=== PATIENT | male | born 1965 | race Caucasian/White ===

== ENCOUNTER 2019-06-28 06:08 | Observation (INO) ==
--- NOTE | 2019-06-10 13:07 | PAT Medication Instructions ---
Medication Instructions Date of Service June 10, 2019 Home Medications ibuprofen [Advil] 200 mg PO UD PRN naproxen 500 mg PO UD PRN ASK your surgeon for instructions ibuprofen [Advil] 200 mg PO UD PRN naproxen 500 mg PO UD PRN Other Notes If you have any questions please call us at [phone] or [phone] or [phone] or [phone]
--- NOTE | 2019-06-13 10:30 | Anesthesiology Consultation ---
Date of Service June 13, 2019 Assessment & Plan (1) Encounter for pre-operative examination: Chart Review Chart Review: Acceptable Risk for Surgery and Patient seen in Pre Admission Testing Teaching & Discussion Pre-Anesthesia Teaching/Discussion Notes: Instructed NPO after midnight before surgery,except medications with 15 cc of water. Medication instructions provided according to the PAT guidelines. History Surgery Operation Date: 06/28/19 12:40 Proposed Procedures p Right Total Hip Arthroplasty - Chavez Begum MD Height/Weight Height: 6 ft 5 in Weight: 183.3 kg Allergies Allergy/AdvReac Type Severity Reaction Status Date / Time No Known Allergies Allergy Verified 06/13/19 08:58 Medications Home Medications Medication Instructions Recorded Confirmed Last Taken ibuprofen [Advil] 200 mg PO UD PRN 06/06/19 06/13/19 Unknown naproxen 500 mg PO UD PRN 06/06/19 06/13/19 Unknown 3-in-1 Commode #1 ea 06/13/19 06/13/19 Unknown 3-in-1 Commode #1 ea 06/13/19 06/13/19 Unknown Wheeled Walker #1 ea 06/13/19 06/13/19 Unknown Wheeled Walker #1 ea 06/13/19 06/13/19 Unknown Past Medical History Medical History Acquired lymphedema of lower extremity Degenerative joint disease of right hip Morbid obesity Osteoarthritis Exercise / Class Metabolic Activity II 4-5 Yardwork/Stairs/Walk up hill Past Family History Family History Father Family history of diabetes mellitus Brother Family history of diabetes mellitus Other Family history of colon cancer Past Surgical History Surgical History History of colonoscopy History of trigger finger Hx of LASIK BOTH EYES Past Anesthesia History No Hx of Anesthesia Complications and No Family Hx of Anesthesia Complications History of PONV No Hx of PONV and No Hx of Motion Sickness Social History Smoking Status: Never smoker Do You Dip or Chew Tobacco: No Hx Alcohol Use: Yes Alcohol type: beer alcohol intake frequency: a few times a month Hx Substance Use: No substance use type: does not use Review of Systems Patient denies chest pain, shortness of breath, dyspnea on exertion, cough, wheezing, palpitations. Physical Exam Vital Signs VITALS BP 136/74 P 82 TEMP 98.3 SP02 93%RA RESP 18 PHYSICAL Full neck and c-spine range of motion. Full TMJ range of motion. TMD 4 finger breaths Mallampati Score 2 Dentition: intact Lungs: clear throughout to auscultation Cardiac: regular rate and rhythm, no murmurs noted Spine: normal Carotid arteries: negative bruit Extremities: no edema Thick neck Testing Laboratory Results 06/13/19 10:54 06/13/19 10:54 PT 10.8 Seconds (9.0-12.0) 06/13/19 10:54 INR 1.1 (0.9-1.1) 06/13/19 10:54 APTT 27.6 Seconds (21.0-31.0) 06/13/19 10:54 Blood Type O Positive 06/13/19 10:54 Antibody Screen NEGATIVE 06/13/19 10:54 Electrocardiogram Date: 06/13/19 NSR at 78bpm. Suggestive of RVCD. Chest X-Ray Date: 06/13/19 Findings: + NAD
[2019-06-13 11:48] LABS: Basophils # (auto) 0.01 K/uL (0-0.2); Basophils % (auto) 0.1 %; Eosinophils % (auto) 2.7 %; Hematocrit (blood only) 44.3 % (42-52); Hemoglobin 15.3 g/dL (14.0-18.0); Immature Granulocytes # (auto) 0.03 K/uL (0.00-0.02); Immature Granulocytes % (auto) 0.4 %; Lymphocytes # (auto) 2.25 K/uL (1.2-3.4); Lymphocytes % (auto) 30.2 %; Mean Corpuscular Hemoglobin 28.9 pg (25-34); Mean Corpuscular Hgb Conc 34.5 g/dL (32-36); Mean Corpuscular Volume 83.6 fL (80-100); Mean Platelet Volume 10.5 fL (7.4-10.4); Monocytes # (auto) 0.48 K/uL (0.11-0.59); Monocytes % (auto) 6.5 %; Neutrophils # (auto) 4.47 K/uL (1.4-6.5); Neutrophils % (auto) 60.1 %; Platelet Count 123 K/uL (130-400); RDW Coefficient of Variation 13.4 % (11.5-14.5); RDW Standard Deviation 40.2 fL (36.4-46.3); White Blood Count 7.44 K/uL (4.8-10.8)
[2019-06-13 11:57] LABS: BUN Creatinine Ratio 22.4 (10-20); C Reactive Protein 0.33 mg/dl (0-0.29); Creatinine Clr Calc Pharmacy 162.7 ml/min; Est GFR (African American) 108.1; Est GFR (Non-African American) 93.3; Potassium 3.9 mmol/L (3.5-5.1)
[2019-06-13 12:02] LABS: INR 1.1 (0.9-1.1); Partial Thromboplastin Time 27.6 Seconds (21.0-31.0); Prothrombin Time 10.8 Seconds (9.0-12.0)
--- NOTE | 2019-06-13 12:16 | XRay Report ---
TWO VIEW CHEST CLINICAL HISTORY: Preoperative examination. FINDINGS: PA and lateral chest radiographs are obtained. No prior studies are available for compariso n at the time of dictation. The heart is top normal for projection. The mediastinal contour is withi n normal limits. The lungs and pleural spaces are clear. There is no pneumothorax. The bony thorax ap pears intact. IMPRESSION: No active disease in the chest. ACT 112: Negative or not required by law. Electronically signed by: Carlos Alberto Tapia M.D. 06/13/2019 12:15 PM
--- NOTE | 2019-06-13 12:56 | Electrocardiogram Report ---
Test Reason : Blood Pressure : / mmHG Vent. Rate : 078 BPM Atrial Rate : 078 BPM P-R Int : 158 ms QRS Dur : 096 ms QT Int : 410 ms P-R-T Axes : 005 000 047 degrees QTc Int : 467 ms Normal sinus rhythm RSR' or QR pattern in V1 suggests right ventricular conduction delay Borderline ECG No previous ECGs available Confirmed by Srikanth Munguia ([id number]) on 06/13/2019 12:55:31 PM Referred By: Chavez Begum Confirmed By:Srikanth Munguia
[~2019-06-28 06:08] MED LIST: ACETAMINOPHEN 500 MG TAB PO SCH; CEFAZOLIN 3000MG 72.5 ML IV SCH; FAMOTIDINE 20 MG TAB PO SCH; GABAPENTIN 300 MG CAP PO SCH; LR 500ML BOLUS, THEN 15ML/HR IV SCH; LR 60ML/HR IV SCH; METOCLOPRAMIDE HCL 10 MG TABLET PO SCH; SCOPOLAMINE 1.5 MG TDSY TD SCH; TRANEXAMIC ACID 1,000 MG **IV Pre-op IV SCH
[2019-06-28] MEDS ORDERED: BUPIVACAINE 0.5 % 5 MG/1 ML PF 10ML VIAL ONE (06:29)
--- NOTE | 2019-06-28 06:53 | History & Physical Bridge Note ---
Date of Service June 28, 2019 History & Physical Bridge Note I have examined the patient, reviewed the History & Physical and in the interval since the performance of the History & Physical I have noted the following changes of clinical significance: no changes noted
[2019-06-28] MEDS ORDERED: MoRPHine SULFATE PF 1 MG/ML 10 ML AMP/VIAL ONE (07:32)
[2019-06-28] MEDS ORDERED: fentaNYL citrate 100 MCG/2 ML VIAL ONE (07:32)
[2019-06-28] MEDS ORDERED: MIDAZOLAM HCL 1 MG/ML 2ML VIAL ONE (07:32)
[2019-06-28] MEDS ORDERED: ePHEDrine sulfate 50 MG/ML SYR ONE (07:35)
[2019-06-28] MEDS ORDERED: LIDOCAINE HCL 2% 2 ML VIAL/AMP(20MG/ML) INFIL ONE (07:35)
[2019-06-28] MEDS ORDERED: PHENYLEPHRINE 100MCG/ML 5ML SYR ONE (07:35)
[2019-06-28] MEDS ORDERED: NEOSTIGMINE METHYLSULFATE 5 MG/5 ML SYR ONE (07:35)
[2019-06-28] MEDS ORDERED: PROPOFOL IV EMULSION 10 MG/ML 20 ML VIAL IV ONE ×3 (07:35→10:36)
[2019-06-28] MEDS ORDERED: BACITRACIN INJ 50,000 UNIT VIAL ONE (08:26)
[2019-06-28] MEDS ORDERED: BUPIVACAINE/EPINEPHRINE 0.5% MPF 1:200,000 10 ML VIAL ONE (08:44)
--- NOTE | 2019-06-28 11:27 | Post Operative Brief Note ---
PG Immediate Post Op with CF Date of Surgery June 28, 2019 Pre & Post Diagnosis Operation Date: 06/28/19 08:50 Pre-Op Diagnosis: Right Hip Advanced Degenerative Joint Disease Post-Op Diagnosis: Right Hip Advanced Degenerative Joint Disease I identified the patient and participated in the time-out.: Yes Procedure Operation Date: 06/28/19 08:50 Actual Procedures p Right Total Hip Arthroplasty--Uncemented(Right) - Chavez Begum MD Surgeon Chavez Begum MD Tour Escort Jeff, PAC Estimated Blood Loss 400 Findings Consistent with Post-Op Diagnosis Fluids 2000 cc Specimens Specimen Description: A: Right Femoral Head Drains Fernandez Catheter (A 16 [place]ic fernandez catheter was inserted by Shweta Morales RN, without difficulty, clear yellow urine obtained, output to be monitored by Anesthesia.) Anesthesia Type Spinal MAC Complications none Disposition Disposition: Recovery Room
--- NOTE | 2019-06-28 11:50 | Operative Report ---
Post Operative Report Pre & Post Diagnosis Operation Date: 06/28/19 08:50 Pre-Op Diagnosis: Right Hip Advanced Degenerative Joint Disease Post-Op Diagnosis: Right Hip Advanced Degenerative Joint Disease I identified the patient and participated in the time-out.: Yes Procedure Operation Date: 06/28/19 08:50 Actual Procedures p Right Total Hip Arthroplasty--Uncemented(Right) - Chavez Begum MD Surgeon Chavez Begum MD Iap Displays Analyst Jeff, PAC Estimated Blood Loss 400 Findings Consistent with Post-Op Diagnosis Operative findings revealed advanced right hip DJD. 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 He had a large anterior acetabular osteophyte. Moderate sized joint effusion. Very contracted hip with a external rotation contracture about 15 degrees. Very large soft tissue envelope. Fluids 2000 cc. Specimens Right femoral head sent for pathology. Drains Nat wound VAC. Anesthesia Type Spinal MAC Complications none Disposition Accompanied Patient To Recovery: Yes Disposition: Recovery Room Indications Patient is a 53-year-old very large obese gentleman whose had a long history of right hip pain discomfort describes gotten worse over the years. We have actually scheduled for hip replacement a year ago but he canceled due to some family issues. Continues to be debilitated by his right hip pain and discomfort and stiffness. X-rays show advanced hip arthritis. He elected proceed with surgical treatment. Description of Procedure Operative implants consisted of: 1. Biomet G7 size 60 mm acetabular shell. 2. 6.5 cancellus acetabular screws 1 of 35 mm length and 125 mm length. 3. Highly cross-linked polyethylene liner with a 60 mm outer diameter, 36 mm inner diameter with a ramon placed inferior and posterior. 4. [place] eliminator. 5. [place] size 11 KLA femoral stem. 6. +8.5/36 mm ceramic articular ball. Patient was taken to the operating room identified and placed on the operating table supine position protectors were properly padded. IV antibiotics were provided by anesthesia team. A spinal anesthetic and been implemented in the holding area. Arevalo catheter was placed in sterile fashion with the patient then placed in the left lateral decubitus position. An axillary roll was placed. The Stulberg hip positioner was used for positioning. The right hip and leg were then prepped and draped in usual sterile fashion. A posterior lateral approach to the right hip was then performed to a curvilinear incision centered over the greater trochanter. Sharp dissection Through subcutaneous tissue down to level the IT band gluteal fascia. He had a very thick soft tissue envelope. The IT band gluteal fascia then incised longitudinally in line with the skin incision. The underlying greater truck bursa was excised. The piriformis, external rotators, and posterior capsule were then released from the posterior aspect hip joint as a single layer. Great care was taken throughout the procedure to protect the sciatic nerve at all times. Hip was then internally rotated and dislocated. Femoral neck osteotomy cut was made the final cut about 15 mm above the lesser trochanter. Femoral head was removed and sent for pathology. In order to adequately mobilize the femur I did have to release the gluteal sling bit. Great care was taken to protect the sciatic nerve. The femur was retracted anteriorly. The acetabulum labrum was excised. The pulmonary fat was excised. Sequential reaming the acetabular was then performed begin with size of 51 and progressing up to a 59. A 60 mm Biomet G7 acetabular shell was then placed in about 40 degrees lateral opening and 20 degrees of anteversion. I worked extremely hard to try and get this in appropriate position. It was fixed with two 6.5 cancellus acetabular screws. Some large anterior osteophytes removed. A trial liner was placed. Attention drawn the femur. The proximal femur was entered with a cookie-cutter followed by canal finder. I then broached begin the size 8 and progressed up to 11. We really got pretty good fit and 11 so we stop there. He had good cancellus bone envelope. Done calcar reamer was used smooth and off the calcar. I then trialed the hip and 8.5 head that seem to re-create soft tissue tension most appropriately and leg lengths are equal. Hip was fully stable in full extension and external rotation flexion 10 9 degrees internal rotation about 40 to 50 degrees. I did elect to place a ramon inferior and posterior to maximize the stability in flexion. We elect to place these implants. All trial implants were removed. An apex hole eliminator was placed but highly cross-linked polyethylene liner with a ramon placed inferior and posterior was impacted in position. A Edward size 11 KLA femoral stem was impacted in position. A +8.5/36 mm ceramic articular ball was placed. Hip was located once again found to be stable. Attention drawn to closing. The wound was irrigated cups amounts of pulsatile lavage solution. I did inject locally with 60 cc of half percent Marcaine with epinephrine. Posterior capsule and external rotators were then repaired through drill holes as a single layer with #2 Tycron suture. The gluteal sling was repaired with #1 PDS suture in a jibvei-ex-wczff fashion. The IT band gluteal fascia then closed with #1 PDS suture in a running fashion with the subcutaneous tissue then closed with 2 layers the deep layer #2 Vicryl suture in the subcutaneous tissues with 2-0 Dexon suture in a buried interrupted fashion. Skin was closed skin estella. Legs then cleaned dried a sterile Nat VAC dressing was applied. Patient then transferred to the recovery room in stable condition. Patient tolerated from a comp case problem sponge counts are correct at the end the operation. I attest to the content of the Intraoperative Record and any orders documented therein. Any exceptions are noted below.
--- NOTE | 2019-06-28 12:07 | XRay Report ---
SINGLE VIEW PELVIS; SINGLE VIEW RIGHT HIP CLINICAL HISTORY: Postoperative examination. FINDINGS: An AP portable view of the hips and pelvis with a crosstable lateral portable view of the r ight hip are obtained. No prior studies are available for comparison at the time of dictation. A bipo lar right hip arthroplasty is in near-anatomic alignment. 2 cortical lag screws transfix the acetabul ar cup. No acute fracture is identified. There are expected postoperative changes overlying the right hip including skin clips, subcutaneous gas, and soft tissue swelling. Mild degenerative joint space narrowing is noted in the left hip. IMPRESSION: Expected postoperative findings status post right hip arthroplasty. No acute fracture is seen. ACT 112: Negative or not required by law. Electronically signed by: Carlos Alberto Tapia M.D. 06/28/2019 12:06 PM
[2019-06-28] MEDS ORDERED: NALOXONE HCL 1 MG in SODIUM CHLORIDE 0.9% 1000ML 1,000 ML IV PRN (12:10)
[2019-06-28] MEDS ORDERED: METOCLOPRAMIDE HCL 20 MG in SODIUM CHLORIDE 0.9% 50 ML IV PRN (12:10)
[2019-06-28] MEDS ORDERED: KETOROLAC 30 MG/ML VIAL IV PRN (12:10)
[2019-06-28] MEDS ORDERED: NALOXONE HCL 0.08 MG in SYRINGE 1.8 ML IV PRN (12:10)
[2019-06-28] MEDS ORDERED: ePHEDrine sulfate 50 MG/ML AMP IV PRN (12:10)
[2019-06-28] MEDS ORDERED: MEPERIDINE HCL 25 MG/ML CARP IV PRN (12:10)
[2019-06-28] MEDS ORDERED: ONDANSETRON INJ 2 MG/ML 2 ML VIAL IV PRN (12:10)
[2019-06-28] MEDS ORDERED: MoRPHine SULFATE PF 1 MG/ML 10 ML AMP/VIAL INT SPINAL ONE (12:10)
[2019-06-28] MEDS ORDERED: HYDROmorphone INJ 0.5 MG/0.5 ML SYR IV PRN (12:10)
[2019-06-28] MEDS ORDERED: MoRPHine SULFATE 2 MG/ML CARP IV PRN (12:10)
[2019-06-28] MEDS ORDERED: PROMETHAZINE HCL 25 MG in SODIUM CHLORIDE 0.9% 50 ML IV PRN (12:10)
[2019-06-28] MEDS ORDERED: NALOXONE HCL 0.4 MG/1 ML VIAL/CARP IV PRN (12:10)
[2019-06-28] MEDS ORDERED: DiphenhydrAMINE HCL 50 MG/ML VIAL IV PRN (12:10)
[2019-06-28] MEDS ORDERED: LACTATED RINGER'S 500 ML IV PRN (12:10)
[2019-06-28] MEDS ORDERED: NALBUPHINE HCL INJ 10 MG/ML AMP IV PRN (12:10)
[2019-06-28] MEDS ORDERED: NO NARCOTICS OR SEDATIVES SCH (12:15)
[2019-06-28] MEDS ORDERED: SODIUM CHLORIDE 0.9% 1000ML 1,000 ML IV SCH (12:15)
[2019-06-28] MEDS ORDERED: TAMSULOSIN HCL 0.4 MG CAP PO PRN (12:32)
[2019-06-28] MEDS ORDERED: bisacodyL 10 MG SUPP PR PRN (12:32)
[2019-06-28] MEDS ORDERED: ALUMINUM/MAGNESIUM SUSP 30 ML UDC PO PRN (12:32)
[2019-06-28] MEDS ORDERED: MAGNESIUM HYDROXIDE SUSP 30 ML UDC PO PRN (12:32)
[2019-06-28] MEDS: SODIUM CHLORIDE 0.9% 1000ML 1,000 ML IV SCH ×2 (12:58→19:52)
[2019-06-28] MEDS ORDERED: CHECK SCOPOLAMINE PATCH PLACEMENT SCH (16:00)
[2019-06-28] MEDS: ASCORBIC ACID 500 MG TAB PO SCH (16:09)
[2019-06-28] MEDS: ACETAMINOPHEN 500 MG TAB PO SCH ×2 (16:09→23:44)
[2019-06-28] MEDS: FERROUS GLUCONATE 324 MG TAB PO SCH (16:09)
[2019-06-28] MEDS: CEFAZOLIN 2000MG 2,000 MG/15 ML SYR IV SCH (16:09)
[2019-06-28] MEDS ORDERED: TRANEXAMIC ACID / 0.7% NACL 1,000 MG/100 ML BAG IV ONE (18:00)
[2019-06-28] MEDS: SENNA 8.6 MG TAB PO SCH (20:35)
[2019-06-28] MEDS: DOCUSATE SODIUM 100 MG CAP PO SCH (20:35)
[2019-06-28] MEDS: ASPIRIN 81 MG ECTAB PO SCH (20:35)
[2019-06-29] MEDS: CEFAZOLIN 2000MG 2,000 MG/15 ML SYR IV SCH (00:56)
[2019-06-29] MEDS: SODIUM CHLORIDE 0.9% 1000ML 1,000 ML IV SCH (02:46)
[2019-06-29 05:52] LABS: Basophils # (auto) 0.01 K/uL (0-0.2); Basophils % (auto) 0.1 %; Eosinophils # (auto) 0.06 K/uL (0-0.5); Eosinophils % (auto) 0.7 %; Hematocrit (blood only) 33.9 % (42-52); Hemoglobin 11.6 g/dL (14.0-18.0); Immature Granulocytes # (auto) 0.01 K/uL (0.00-0.02); Immature Granulocytes % (auto) 0.1 %; Lymphocytes # (auto) 1.47 K/uL (1.2-3.4); Lymphocytes % (auto) 16.2 %; Mean Corpuscular Hemoglobin 28.5 pg (25-34); Mean Corpuscular Hgb Conc 34.2 g/dL (32-36); Mean Corpuscular Volume 83.3 fL (80-100); Mean Platelet Volume 10.1 fL (7.4-10.4); Monocytes # (auto) 0.95 K/uL (0.11-0.59); Monocytes % (auto) 10.5 %; Neutrophils # (auto) 6.56 K/uL (1.4-6.5); Neutrophils % (auto) 72.4 %; Platelet Count 115 K/uL (130-400); RDW Coefficient of Variation 13.1 % (11.5-14.5); RDW Standard Deviation 39.5 fL (36.4-46.3); Red Blood Count 4.07 M/uL (4.7-6.1); White Blood Count 9.06 K/uL (4.8-10.8)
[2019-06-29] MEDS ORDERED: NALOXONE HCL 0.4 MG/1 ML VIAL/CARP IV PRN (06:10)
[2019-06-29] MEDS ORDERED: ONDANSETRON INJ 2 MG/ML 2 ML VIAL IV PRN (06:10)
[2019-06-29] MEDS ORDERED: DC INTRASPINAL MORPHINE ONE (06:10)
[2019-06-29] MEDS ORDERED: HYDROmorphone INJ 0.5 MG/0.5 ML SYR IV PRN (06:10)
[2019-06-29] MEDS ORDERED: METOCLOPRAMIDE HCL INJ 5 MG/ML 2 ML VIAL IV PRN (06:11)
[2019-06-29] MEDS: TRAMADOL HCL 50 MG TABLET PO PRN ×3 (06:17→23:53)
[2019-06-29 06:18] LABS: BUN Creatinine Ratio 14.5 (10-20); Calcium 8.5 mg/dl (8.5-10.1); Creatinine Clr Calc Pharmacy 149.9 ml/min; Est GFR (African American) 100.2; Est GFR (Non-African American) 86.4; Potassium 3.9 mmol/L (3.5-5.1)
[2019-06-29] MEDS: ASCORBIC ACID 500 MG TAB PO SCH ×2 (07:58→18:12)
[2019-06-29] MEDS: MULTIVITAMIN TAB PO SCH (07:58)
[2019-06-29] MEDS: DOCUSATE SODIUM 100 MG CAP PO SCH ×2 (07:58→18:12)
[2019-06-29] MEDS: ASPIRIN 81 MG ECTAB PO SCH ×2 (07:59→21:23)
[2019-06-29] MEDS: ACETAMINOPHEN 500 MG TAB PO SCH ×3 (07:59→23:54)
[2019-06-29] MEDS: FERROUS GLUCONATE 324 MG TAB PO SCH ×2 (07:59→18:12)
--- NOTE | 2019-06-29 09:06 | Progress Note ---
DATE: 06/29/2019 SUBJECTIVE: A 53-year-old gentleman postop day 1 from a right hip replacement. He is doing pretty well. He rates his most severe pain at a 5. Denies any chest pain or shortness of breath. He is doing okay with the pain pills. OBJECTIVE: VITAL SIGNS: Temperature 37.7. Vital signs stable. GENERAL: Reveals a very large middle-aged male. He was ambulating in the bathroom with his walker when I saw him this morning. LUNGS: Clear to auscultation. HEART: Has a regular rate and rhythm. ABDOMEN: Soft, nontender, nondistended. EXTREMITIES: Grossly neurovascularly intact except as follows. Examination of the right hip and leg reveals a Prevena wound VAC to intact and in place. Thigh is soft and supple. There is no significant swelling. Hip is located. Leg lengths are equal. He can dorsiflex and plantarflex his foot appropriately. LABORATORY DATA: Hemoglobin 11.6. Hematocrit 33.9. Electrolytes are stable. ASSESSMENT: A 53-year-old gentleman postop day 1 from right hip replacement, doing pretty well. Pain is controlled. Hip is located. He is neurologically intact. PLAN: 1. DVT prophylaxis including thigh-high TEDs, SCDs, and aspirin twice a day. 2. PT/OT. Weight bear as tolerated. Right total hip protocol. 3. Pain control, doing pretty well with current pain regimen. 4. Disposition: He is planning to be discharged to home with some home health once adequately recovered and medically stable, likely tomorrow after therapy.
[2019-06-29] MEDS: KETOROLAC 30 MG/ML VIAL IV SCH ×3 (11:47→23:54)
[2019-06-29] MEDS: SENNA 8.6 MG TAB PO SCH (18:12)
[2019-06-30] MEDS: KETOROLAC 30 MG/ML VIAL IV SCH (05:50)
[2019-06-30] MEDS: ASPIRIN 81 MG ECTAB PO SCH (07:30)
[2019-06-30] MEDS: ACETAMINOPHEN 500 MG TAB PO SCH (07:30)
[2019-06-30] MEDS: MULTIVITAMIN TAB PO SCH (07:30)
[2019-06-30] MEDS: ASCORBIC ACID 500 MG TAB PO SCH (07:30)
[2019-06-30] MEDS: DOCUSATE SODIUM 100 MG CAP PO SCH (07:31)
[2019-06-30] MEDS: FERROUS GLUCONATE 324 MG TAB PO SCH (07:31)
--- NOTE | 2019-06-30 07:53 | Progress Note ---
DATE: 06/30/2019 SUBJECTIVE: A 53-year-old gentleman postop day ____ from right hip replacement. He is doing well. Pain is controlled. He says his pain is less than what it was before surgery. He is getting around reasonably well. No chest pain or shortness of breath. Not feeling dizzy or lightheaded. OBJECTIVE: VITAL SIGNS: Temperature 37.1. Vital signs stable. GENERAL: Shows a pleasant, middle-aged male. He is sitting up by his bedside chair, looks comfortable. EXTREMITIES: Examination of the right hip reveals a Prevena dressing to be in place. His thigh is soft and supple. Leg lengths are equal. Hip is located. He is neurologically intact. ASSESSMENT: A 53-year-old gentleman postop day 1 from right hip replacement, doing pretty well. Pain is controlled. Hip is located. He is neurologically intact. PLAN: 1. DVT prophylaxis including thigh-high TEDs, SCDs, and aspirin twice a day. 2. PT/OT. Weight bear as tolerated. Right total hip protocol. 3. Pain control, doing pretty well with current pain regimen. 4. Disposition: Plan to discharge to home with some home health later today.
[2019-06-30] MEDS: TRAMADOL HCL 50 MG TABLET PO PRN (10:27)
--- NOTE | 2019-07-05 14:57 | Discharge Summary ---
ADMITTING PHYSICIAN AND SURGEON: Dr. Chavez Begum. ADMITTING DIAGNOSIS: Right hip degenerative joint disease. SURGERY PERFORMED: Right total hip arthroplasty. SECONDARY DIAGNOSES: Obesity, arthritis. CONSULTS: None obtained. HISTORY AND PHYSICAL EXAMINATION: Well documented in the patient's chart. HOSPITAL COURSE: The patient was admitted on 06/28/2019 underwent total hip arthroplasty, tolerated the procedure well. There were no complications. He was transferred to the PACU postoperatively and later to the orthopedic floor for further care. He was given Ancef for antibiotic prophylaxis, CLARK stockings, SCDs and aspirin for DVT prophylaxis. Hemoglobin, hematocrit and vital signs were monitored during his hospital stay and remained stable, did not require any blood transfusions. There were no complications. By postoperative day 2, he was tolerating a regular diet, pain was controlled with oral pain medicine. He was participating in physical therapy. Postop day 2, he was discharged home, set up with home health services, given printed discharge instructions as well as new prescriptions for extra strength Tylenol and aspirin. Continue his home medications, continue physical therapy, weightbearing as tolerated, CLARK stockings, total hip precautions. Follow up approximately 2 weeks postop or sooner if there are any problems or concerns.
== END 2019-06-30 10:45 | disposition home health service (06) ==
LOC: ASU 06:08 → 3E 06:08